=== PATIENT | male | born 1985 | race Caucasian/White ===

== ENCOUNTER 2017-07-28 18:02 | Emergency (ER) | payer SELFPAY ==
[~2017-07-28] VITALS: Ht 177.8 cm; Wt 76.0 kg
[~2017-07-28 18:02] MED LIST: Z.0.NO CURRENT MEDS
[2017-07-28 18:16] VITALS: BP 174/101; PULSE 116; RESP 16; TEMP 98.4; O2SAT 99
== END 2017-07-28 18:38 | disposition left against medical advice (07) ==
LOC: NED 18:02
DX: Z53.21 Procedure and treatment not carried out due to patient leaving prior to being seen by health care provider (principal)
CPT/HCPCS: 99281